=== PATIENT | male | born 1980 | race African-American/Black ===

== ENCOUNTER 2020-08-27 10:24 | Emergency (ER) | payer OTHER ==
[~2020-08-27] VITALS: Ht 170.2 cm; Wt 113.4 kg
== END 2020-08-27 13:07 | disposition home or self-care (01) ==
LOC: ER 10:24
DX: S60.021A Contusion of right index finger without damage to nail, initial encounter (principal); W23.0XXA Caught, crushed, jammed, or pinched between moving objects, initial encounter; Y93.89 Activity, other specified; Y92.89 Other specified places as the place of occurrence of the external cause; Y99.8 Other external cause status